=== PATIENT | female | born 1995 | race Caucasian/White ===

== ENCOUNTER 2021-08-18 15:44 | Outpatient (CLI) | payer OTHER | END 2021-08-18 15:45 | disposition home or self-care (01) | LOC: BICULT 15:44 | PROVIDERS: ATTEND Student in an Organized Health Care Education/Training Program | DX: N83.201 Unspecified ovarian cyst, right side (principal); N83.202 Unspecified ovarian cyst, left side | CPT/HCPCS: 76856 ==